=== PATIENT | female | born 1965 ===

== ENCOUNTER 2018-12-31 14:18 | Emergency (ER) | payer OTHER ==
[2018-12-31 14:58] VITALS: TEMP 98
[2018-12-31 15:52] LABS: BASO % 0.3 % (0.0-2.0); EOS % 0.2 % (0.0-4.0); HEMOGLOBIN 14.5 g/dL (11.0-16.0); LYMPH # 1.1 K/uL (1.0-4.3); LYMPH % 15.6 % (20.0-40.0); MEAN CELL VOLUME 91.1 fL (81.0-99.0); MEAN CORPUSCULAR HEMOGLOBIN 31.3 pg (27.0-31.0); MEAN CORPUSCULAR HGB CONC 34.4 g/dL (33.0-37.0); MEAN PLATELET VOLUME 9.3 fL (7.2-11.7); MONO # 0.3 K/uL (0.0-0.8); MONO % 4.4 % (0.0-10.0); NEUT # 5.8 K/uL (1.8-7.0); NEUT % 79.5 % (50.0-75.0); RBC 4.64 Mil/uL (3.80-5.20); RED CELL DISTRIBUTION WIDTH 14.5 % (11.5-14.5); WHITE BLOOD COUNT 7.4 K/uL (4.8-10.8)
[2018-12-31 16:13] LABS: ALB/GLOB RATIO 1.3 (1.0-2.1); ALBUMIN 4.7 g/dL (3.5-5.0); ALT/SGPT 21 U/L (9-52); AST/SGOT 29 U/L (14-36); BLOOD UREA NITROGEN 11 mg/dL (7-17); CALCIUM 9.9 mg/dl (8.6-10.4); GFR NON-AFRICAN AMERICAN > 60
[2018-12-31 16:24] LABS: B-TYPE NATRIURETIC PEPTIDE 84.3 pg/mL (0-900)
--- NOTE | 2018-12-31 17:08 | C.PDOC ---
History Of Present Illness 53 year old female with no pertinent medical history presents to the ED with a myriad of complaints. Reports she has palpitations in her throat and feels like she is unable to swallow. Also complains of heaviness in her left arm, weakness in bilateral knees and feeling lethargic since yesterday. States she was seen at [facility] [place] and bloodwork and EKG were unremarkable. Reports she tried going to work today but she was not able to make it because of symptoms which prompted calling the ambulance and coming to the ED. Denies any nausea, vomiting, diarrhea, fever, chills, or constipation. Time Seen by Provider: 12/31/18 14:24 Chief Complaint (Nursing): Chest Pain History Per: Patient History/Exam Limitations: no limitations Onset/Duration Of Symptoms: Days (1) Current Symptoms Are (Timing): Still Present Past Medical History Reviewed: Historical Data, Nursing Documentation, Vital Signs Vital Signs: Last Vital Signs Temp 98 F 12/31/18 14:30 Pulse 77 12/31/18 14:30 Resp 20 12/31/18 14:30 BP 129/69 12/31/18 14:30 Pulse Ox 98 12/31/18 14:30 Primary Care Provider: Manuela Sagastume A - Medical History PMH: No Chronic Diseases Surgical History: Cholecystectomy, Family History: States: No Known Family Hx - Social History Hx Alcohol Use: Yes Hx Substance Use: No Review Of Systems Except As Marked, All Systems Reviewed And Found Negative. Constitutional: Negative for: Fever, Chills Cardiovascular: Positive for: Light Headedness (mild) Respiratory: Positive for: Shortness of Breath (slight ) Gastrointestinal: Positive for: Abdominal Pain (slight ). Negative for: Nausea, Vomiting, Diarrhea, Constipation Genitourinary: Negative for: Dysuria, Hematuria Musculoskeletal: Negative for: Neck Pain Neurological: Positive for: Headache (mild) Physical Exam - Physical Exam Appears: Non-toxic, No Acute Distress, Other (afebrile, vitals WTN, cooperative, calm, comfortable) Skin: Warm, Dry, No Rash Head: Atraumatic, Normacephalic Eye(s): bilateral: Normal Inspection, PERRL, EOMI Nose: Normal Oral Mucosa: Moist Neck: Supple Chest: Symmetrical, No Tenderness Cardiovascular: Rhythm Regular, No Murmur Respiratory: Normal Breath Sounds, No Rales, No Rhonchi, No Wheezing Gastrointestinal/Abdominal: Soft, No Tenderness Back: No CVA Tenderness Extremity: Normal ROM, No Tenderness, No Pedal Edema, No Calf Tenderness, Capillary Refill (less than 2 sec to b/l knees ), No Deformity, No Swelling, Other (warmth or redness to knees ) Extremity: Bilateral: Atraumatic, Normal Color And Temperature, Normal ROM ED Course And Treatment - Laboratory Results Result Diagrams: 12/31/18 15:49 12/31/18 15:49 Lab Results: Troponin I < 0.0120 ng/mL (0.00-0.120) 12/31/18 15:49 NT-Pro-B Natriuret Pep 84.3 pg/mL (0-900) 12/31/18 15:49 Total Bilirubin 0.4 mg/dL (0.2-1.3) 12/31/18 15:49 AST 29 U/L (14-36) 12/31/18 15:49 ALT 21 U/L (9-52) 12/31/18 15:49 Alkaline Phosphatase 74 U/L (38-126) 12/31/18 15:49 Total Protein 8.3 g/dL (6.3-8.3) 12/31/18 15:49 Albumin 4.7 g/dL (3.5-5.0) 12/31/18 15:49 Globulin 3.6 gm/dL (2.2-3.9) 12/31/18 15:49 Albumin/Globulin Ratio 1.3 (1.0-2.1) 12/31/18 15:49 ECG: Interpreted By Me, Viewed By Me ECG Rhythm: Sinus Rhythm Interpretation Of ECG: No ST elevations/depressions Rate From EC O2 Sat by Pulse Oximetry: 98 (RA) Pulse Ox Interpretation: Normal Medical Decision Making Medical Decision Making: Plan - EKG - Bloodwork Bloodwork is unremarkable. On reevaluation, patient reports feeling better. Pt instructed to f/u with PMD and internal specialist. Disposition Counseled Patient/Family Regarding: Studies Performed, Need For Followup - Disposition Referrals: Manuela Sagastume [Staff Provider] - Disposition: HOME/ ROUTINE Disposition Time: 17:05 Condition: IMPROVED Forms: [facility] (Montenegrin), Gen Discharge Inst Montenegrin - POA Present On Arrival: None - Clinical Impression Clinical Impression: Chest discomfort - Scribe Statement The provider has reviewed the documentation as recorded by the Scribe Indira Benz All medical record entries made by the Aniyahibe were at my direction and personally dictated by me. I have reviewed the chart and agree that the record accurately reflects my personal performance of the history, physical exam, medical decision making, and the department course for this patient. I have also personally directed, reviewed, and agree with the discharge instructions and disposition.
[2018-12-31 17:30] VITALS: BP 110/65; PULSE 72; RESP 14
[2018-12-31 17:41] VITALS: O2SAT 98
--- NOTE | 2019-01-01 17:50 | CARD ---
APPROVED REPORT Date of service: 12/31/2018 EKG Measurement Heart [id number] <Conclusion> Normal sinus rhythm Normal ECG
== END 2018-12-31 17:32 | disposition home or self-care (01) ==
LOC: C.ER 14:18
DX: R07.89 Other chest pain (principal)